=== PATIENT | female | born 1980 | race Caucasian/White ===

== ENCOUNTER 2019-11-19 01:38 | Emergency (ER) | payer MEDICAID ==
[~2019-11-19] VITALS: Ht 162.6 cm; Wt 59.0 kg
[2019-11-19 01:43] VITALS: BP 89/64
--- NOTE | 2019-11-19 01:46 | NUR ---
PT W/C ASSISTED TO BED #12
--- NOTE | 2019-11-19 01:57 | NUR ---
39 Y/O FEMALE PRESENTED TO ED C/O LOWER ABD PAIN X 1 DAY . PT [place] AND WAS HAVING MILD PAIN BUT NO LOSS OF APPETITE. PT STATES X 1 HR AGO THE PAIN BECAME SEVERE. NORMOACTIVE BOWEL SOUNDS ALL QUADS. ABD FLAT, SOFT AND TENDER UPON PALPATION. A/O X 4 , RR EVEN AND UNLABORED , SKIN PINK WARM AND INTACT. PT PLACED IN GOWN . PT RESTING IN BED , LOCKED AND IN LOWEST POSITION, HOB ELEVATED, SIDE RAIL X1. PMH: 2 X , OVARIAN CYST NKA
--- NOTE | 2019-11-19 01:58 | NUR ---
ERMD BEDSIDE EVALUATING PT
[2019-11-19] MEDS ORDERED: KETOROLAC 30 MG/ML VIAL IVP ONE (02:00)
[2019-11-19] MEDS ORDERED: NACL 0.9% 1,000 ML IV ONE (02:00)
[2019-11-19] MEDS ORDERED: ONDANSETRON 4 MG/2 ML VIAL IVP ONE (02:00)
[2019-11-19 02:12] LABS: BASOPHILS % (AUTO) 0.4 % (0.0-2.0); EOSINOPHILS # (AUTO) 0.1 K/uL (0-0.4); EOSINOPHILS % (AUTO) 1.4 % (0.0-4.0); HEMATOCRIT 39.8 % (36-48); HEMOGLOBIN 13.2 g/dL (12.0-16.0); LYMPHOCYTES # (AUTO) 1.7 K/uL (2.5-16.5); MEAN CORPUSCULAR HEMOGLOBIN 30 pg (27-31); MEAN CORPUSCULAR HGB CONC 33 g/dL (33-37); MEAN CORPUSCULAR VOLUME 89.2 fL (80-94); MONOCYTES # (AUTO) 0.4 K/uL (0.8-1.0); MONOCYTES % (AUTO) 4.9 % (1.7-9.3); NEUTROPHILS # (AUTO) 5.3 K/uL (1.8-7.7); NEUTROPHILS % (AUTO) 70.3 % (42.2-75.2); PLATELET COUNT (AUTO) 219 K/uL (140-450); RED BLOOD CELL COUNT(AUTO) 4.47 MIL/uL (4.20-5.40); RED CELL DISTRIBUTION WIDTH 14.2 % (11.6-13.7); WHITE BLOOD COUNT (AUTO) 7.5 K/uL (4.8-10.8)
[2019-11-19 02:33] LABS: ALBUMIN 4.3 g/dL (3.4-5.0); ANION GAP 13.5 (8-16); CREATININE 0.8 mg/dL (0.6-1.3); POTASSIUM 3.5 mmol/L (3.5-5.1); TOTAL BILIRUBIN 0.2 mg/dL (0.0-1.0)
--- NOTE | 2019-11-19 02:42 | NUR ---
ASSISTED PT TO THE RESTROOM VIA WHEELCHAIR.
--- NOTE | 2019-11-19 03:04 | NUR ---
PT TAKEN TO CT VIA WHEELCHAIR.
--- NOTE | 2019-11-19 03:11 | NUR ---
PT BACK FROM CT VIA WHEELCHAIR.
--- NOTE | 2019-11-19 04:46 | NUR ---
ASSISTED PT TO THE RESTROOM, STEADY GAIT.
--- NOTE | 2019-11-19 05:27 | NUR ---
PT ASLEEP, RESTING IN BED, RR EVEN AND UNLABORED, NO C/O PAIN AT THIS TIME. BED LOCKED AND IN LOWEST POSITION, SIDE RAIL UP X1. WILL CONTINUE TO MONITOR.
[2019-11-19 06:08] VITALS: BP 89/64
--- NOTE | 2019-11-19 06:09 | NUR ---
Patient discharged with v/s stable. Written and verbal after care instructions given and explained. Patient verbalized understanding. Ambulatory with steady gait. All questions addressed prior to discharge. Advised to follow up with PMD.
[2019-11-19] MEDS ORDERED: MORPHINE SULFATE 4 MG/ML SYR ONE (21:10)
[2019-11-19] MEDS ORDERED: MORPHINE SULFATE 2 MG/ML SYR ONE (21:14)
[2019-11-20] MEDS ORDERED: ACETAMINOPHEN 325 MG TAB ONE (03:19)
== END 2019-11-19 06:09 | disposition home or self-care (01) ==
LOC: MED 01:38
DX: N83.8 Other noninflammatory disorders of ovary, fallopian tube and broad ligament (principal); R11.2 Nausea with vomiting, unspecified; Z98.890 Other specified postprocedural states
CPT/HCPCS: 36415; 74176; 76856; 80053; 81002; 81025; 85025; 93976; 96361; 96374; 96375; 99285; J1885; J2270; J2405; J7030; Q0092; J1644

== ENCOUNTER 2019-11-19 12:59 | Inpatient (IN) | payer MEDICAID ==
[~2019-11-19] VITALS: Ht 162.6 cm; Wt 60.8 kg
[2019-11-19 13:02] VITALS: BP_SYST 85; BP_SYST 94; BP_DIAS 54; BP_DIAS 61
--- NOTE | 2019-11-19 13:14 | NUR ---
39/F c/o abd pain x2 hours. pt was just seen at [facility] last night and told to f/u w dr. arnold today. her appt was at 1pm but she was in too much pain so she wanted to seek emergency treatment instead. pt states she was told she has "2 masses" on her ovaries. 11/24 shooting pain L & R pelvis radiating to low back N/v last night but not today hx: ovarian mass L and R rx: none
--- NOTE | 2019-11-19 13:23 | NUR ---
PT RESTING IN BED, SIDE RAIL X1
[2019-11-19] MEDS ORDERED: MORPHINE SULFATE 4 MG/ML SYR IVP ONE (14:00)
[2019-11-19] MEDS ORDERED: ONDANSETRON 4 MG/2 ML VIAL IVP ONE (14:00)
--- NOTE | 2019-11-19 14:30 | NUR ---
US AT BEDSIDE
[2019-11-19] MEDS ORDERED: NACL 0.9% 1,000 ML IV ONE (16:15)
[2019-11-19] MEDS ORDERED: POTASSIUM CHLORIDE 10 MEQ TABER PO PRN (16:25)
[2019-11-19] MEDS ORDERED: DOCUSATE SODIUM 100 MG GELCAP PO PRN (16:25)
[2019-11-19] MEDS ORDERED: MAG SULF 2000 MG/WATER PREMIX 50 ML IV PRN (16:25)
[2019-11-19] MEDS ORDERED: LORazepam 2 MG/ML VIAL IM/IVP PRN (16:25)
[2019-11-19] MEDS ORDERED: ONDANSETRON 4 MG/2 ML VIAL IM/IVP PRN (16:25)
[2019-11-19] MEDS ORDERED: HYDROcodone/APAP 5/325 MG 1 TAB TAB PO PRN (16:25)
[2019-11-19] MEDS ORDERED: ACETAMINOPHEN 325 MG TAB PO PRN (16:25)
[2019-11-19] MEDS ORDERED: ZOLPIDEM 5 MG TAB PO PRN (16:25)
--- NOTE | 2019-11-19 16:39 | NUR ---
PT RESTING IN BED, SIDE RAIL X1
[2019-11-19 17:17] LABS: APPEARANCE,URINE SL CLOUDY (CLEAR); BILIRUBIN,URINE NEGATIVE (NEGATIVE); BLOOD, URINE NEGATIVE (NEGATIVE); COLOR,URINE YELLOW (YELLOW); LEUKOCYTE ESTERASE ,URINE NEGATIVE (NEGATIVE); NITRITE, URINE NEGATIVE (NEGATIVE); UGLUCOSE NEGATIVE (NEGATIVE)
--- NOTE | 2019-11-19 17:19 | NUR ---
URINE OBTAINED GIVEN TO LAB
[2019-11-19 17:23] LABS: CHOL/HDL RATIO 4.7 (1-4.5); THYROID STIMULATING HORMONE 4.93 uIU/mL (0.34-3.74)
[2019-11-19 17:31] LABS: BARBITURATE, URINE NEGATIVE ng/ml (NEG <=200); BENZODIAZEPINE, URINE NEGATIVE ng/mL (NEG <=200); CANNABINOID, URINE NEGATIVE ng/mL (NEG <=50); COCAINE, URINE NEGATIVE ng/mL (NEG <=300); OPIATE, URINE NEGATIVE ng/mL (NEG <=2000); PHENCYCLIDINE SCREEN,URINE NEGATIVE ng/mL (NEG <=25)
[2019-11-19 17:52] LABS: PROTHROMBIN TIME 10.3 secs (10.8-13.4)
--- NOTE | 2019-11-19 19:10 | NUR ---
NEGIN FRYE GIVEN REPORT FOR CONTINUITY OF CARE
--- NOTE | 2019-11-19 20:20 | NUR ---
PT RESTING IN BED, REQUESTING PAIN MEDS \ Addendum: 11/19/19 at 2207 by MEDWQ VSS, R/R EQUAL AND UNLABORED. SIDE RAIL X 2 BED IN LOW POSITION, WILL CONTINUE TO MONITOR.
--- NOTE | 2019-11-19 21:00 | NUR ---
PT RECEIVED MORPHINE 0.5MG IVP, PT TOLERATED WELL. WILL CONTINUE TO MONITOR.
[2019-11-19] MEDS: MORPHINE SULFATE 2 MG/ML SYR IVP PRN (21:24)
--- NOTE | 2019-11-19 21:25 | NUR ---
PT RESTING IN BED QUIETLY. R/R EQUAL, AND UNLABORED. VSS. SIDE RAIL X1, BED IN LOW POSITION, WILL CONTINUE TO MONITOR
--- NOTE | 2019-11-19 22:13 | NUR ---
PT RESTING IN BED QUIETLY. R/R EQUAL, AND UNLABORED. VSS. SIDE RAIL X1, BED IN LOW POSITION, WILL CONTINUE TO MONITOR
--- NOTE | 2019-11-19 23:26 | NUR ---
PT APPEARS TO BE SLEEPING IN BED. R/R EQUAL, AND UNLABORED. VSS. SIDE RAIL X1, BED IN LOW POSITION, WILL CONTINUE TO MONITOR
--- NOTE | 2019-11-20 00:30 | NUR ---
PT SLEEPING IN BED QUIETLY, R/R EQUAL, AND UNLABORED. VSS, SIDE RAIL X1, BED IN LOW POSITION, WILL CONTINUE TO MONITOR.
[2019-11-20 01:40] VITALS: BP 122/77
--- NOTE | 2019-11-20 01:40 | NUR ---
RECEIVED PT AAOX4 , FROM ER , NID , IV SITE INTACT AND PATENT , NO SPOTTING NO BLEEDING . WALKS TO BED SAFETY MEASURES IN PLACE . NPO REMIND THE PT . POC DISCUSSED AND VERBALIZED UNDERSTANDING , ADM . ASSESSMENT DONE . WILL CONT. TO MONITOR . CALL LIGHT WITHIN REACH .
--- NOTE | 2019-11-20 01:41 | NUR ---
Patient will be admitted to care of DR. CUNNINGHAM. Admited to MS. Will go to room 111 A. Belongings list completed. Report to MELVA SABILLON.
[2019-11-20 04:00] VITALS: BP 89/50
[2019-11-20] MEDS ORDERED: NACL 0.9% 500 ML IV ONE (04:05)
[2019-11-20] MEDS ORDERED: NACL 0.9% 1,000 ML IV SCH (04:05)
--- NOTE | 2019-11-20 05:00 | NUR ---
DO ROUNDS , RE CHECK PT'S BP 89 /50 - WILL REFER TO DOCTOR SPENT GRAIN DRYER .
--- NOTE | 2019-11-20 05:04 | NUR ---
DR. MORTON - CALL BACK - MADE T.O : 1.5 NSS BOLUS - WILL CARRY OUT .
--- NOTE | 2019-11-20 06:00 | NUR ---
BP RE CHECK - 90/60 - NO COMPLAIN MADE . WILL CONT. TO MONITOR .
[2019-11-20 07:03] LABS: BASOPHILS % (AUTO) 0.3 % (0.0-2.0); EOSINOPHILS % (AUTO) 0.5 % (0.0-4.0); HEMATOCRIT 32.3 % (36-48); HEMOGLOBIN 10.7 g/dL (12.0-16.0); LYMPHOCYTES # (AUTO) 1.2 K/uL (2.5-16.5); MEAN CORPUSCULAR HEMOGLOBIN 30 pg (27-31); MEAN CORPUSCULAR HGB CONC 33 g/dL (33-37); MEAN CORPUSCULAR VOLUME 89.8 fL (80-94); MONOCYTES # (AUTO) 0.3 K/uL (0.8-1.0); MONOCYTES % (AUTO) 4.1 % (1.7-9.3); NEUTROPHILS # (AUTO) 5.8 K/uL (1.8-7.7); NEUTROPHILS % (AUTO) 79.1 % (42.2-75.2); PLATELET COUNT (AUTO) 165 K/uL (140-450); RED CELL DISTRIBUTION WIDTH 14.4 % (11.6-13.7); WHITE BLOOD COUNT (AUTO) 7.4 K/uL (4.8-10.8)
--- NOTE | 2019-11-20 07:34 | NUR ---
ENDORSED TO TO AM SHIFT - PT -,STABLE .
--- NOTE | 2019-11-20 07:34 | NUR ---
RECEIVED PT FROM NIGHT RN. PT A/OX4. ASLEEP IN BED. PT ON RA. DIET: NPO EXCEPT MEDS. 22G IV IN L HAND. SKIN INTACT. 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 NO ACUTE DISTRESS NOTED. SAFETY PRECAUTIONS IN PLACE. BED IN LOW POSITION. CALL LIGHT IN REACH. WILL CONTINUE TO MONITOR.
[2019-11-20 07:36] LABS: ANION GAP 13.8 (8-16); CARBON DIOXIDE 22.2 mmol/L (21-32); CREATININE 0.8 mg/dL (0.6-1.3)
[2019-11-20 07:46] LABS: MAGNESIUM 1.8 mg/dL (1.8-2.4); PHOSPHORUS 2.8 mg/dL (2.5-4.9)
[2019-11-20 08:07] LABS: T4 (THYROXINE) 7.7 ug/dL (4.5-12.0)
--- NOTE | 2019-11-20 08:47 | NUR ---
ADMINISTERED MORNING MEDS. PT TOLERATED. ASSISTED PT TO BATHROOM. WILL CONTINUE TO MONITOR.
--- NOTE | 2019-11-20 09:04 | NUR ---
PATIENT HAS BEEN SCREENED AND CATEGORIZED LOW NUTRITION RISK. PATIENT WILL BE SEEN WITHIN 7 DAYS OF ADMISSION. 11/26/[address]
--- NOTE | 2019-11-20 09:19 | NUR ---
DR CUNNINGHAM MADE ROUNDS
[2019-11-20 09:37] VITALS: BP 121/76
--- NOTE | 2019-11-20 10:57 | NUR ---
PT SITTING IN BED TALKING TO FAMILY ON PHONE. NO ACUTE DISTRESS NOTED. WILL CONTINUE TO MONITOR.
--- NOTE | 2019-11-20 11:14 | NUR ---
DC PLANN[age] YRS OLD FEMALE PATIENT WAS ADMITTED FROM HOME WITH A DX OF INTRACTABLE ABD PAIN AND BILATERAL OVARIAN CYST. PATIENT HAS A HX OF IRREGULAR SPOTTING AND IRON DEFICIENCY, CONSULTED WITH DR LEWIS PERFORMED DIAGNOSTIC LAPAROSCOPY CA 125 AND CA 19-9. ADMINISTERED IVF ,ADVANCED DIET TO REGULAR. DC PLAN TO GO HOME WHEN STABLE. CM TO FOLLOW. Addendum: 11/21/19 at 1330 by Joanna Tellez CM DC PLANNING PT STABLE FOR DISCHARGE AND F/U WITH DR LEWIS WITHIN ONE WEEK.
--- NOTE | 2019-11-20 11:32 | NUR ---
PT BP IN LOWER EXTREMITIES: 109/59, UPPER EXTREMITIES 93/60. BP RECHECKED IN EACH EXTREMITY TWICE. DR CUNNINGHAM NOTIFIED. NO ACUTE DISTRESS NOTED. WILL CONTINUE TO MONITOR
--- NOTE | 2019-11-20 12:02 | NUR ---
RECEIVED ORDER FOR IV NS @100ML/HR PER DR CUNNINGHAM. WILL CARRY OUT ORDER.
[2019-11-20 12:03] VITALS: BP 93/62
[2019-11-20] MEDS: NACL 0.9% 1,000 ML IV SCH ×2 (12:06→21:35)
--- NOTE | 2019-11-20 12:27 | NUR ---
OBTAINED CONSENT FOR DIAGNOSTIC LAPAROTOMY.
[2019-11-20] MEDS ORDERED: MEPERIDINE 25 MG/ML SYR IVP SCH (14:00)
--- NOTE | 2019-11-20 14:17 | NUR ---
PT SITTING IN BED. STATES "SHE FEELS A BIT BETTER". NO ACUTE DISTRESS NOTED. WILL CONTINUE TO MONITOR.
--- NOTE | 2019-11-20 14:30 | NUR ---
PATIENT OFF UNIT TO OR FOR LAPAROTOMY Addendum: 11/20/19 at 1756 by Princess Kerry Grace RN CORRECTION: LAPAROSCOPIC
[2019-11-20] MEDS ORDERED: MIDAZOLAM 2 MG/2 ML VIAL ONE (15:00)
[2019-11-20] MEDS ORDERED: ROCURONIUM 50 MG/5 ML VIAL IV ONE (15:00)
[2019-11-20] MEDS ORDERED: PROPOFOL 200 MG/20 ML VIAL IV ONE (15:00)
[2019-11-20] MEDS ORDERED: KETOROLAC 30 MG/ML VIAL ONE (15:00)
[2019-11-20] MEDS ORDERED: ONDANSETRON 4 MG/2 ML VIAL ONE (15:00)
[2019-11-20] MEDS ORDERED: fentaNYL citrate 0.05 MG/ML VIAL ONE (15:00)
[2019-11-20] MEDS ORDERED: SEVOFLURANE 250 ML BTL INH ONE (15:00)
[2019-11-20] MEDS ORDERED: BUPIVACAINE-MPF/EPI 0.25% 30 ML VIAL INJ ONE (15:23)
--- NOTE | 2019-11-20 18:07 | NUR ---
PT BACK ON UNIT. PT VITAL: BP: 94/61 HR:85 TEMP: 97.7 RR: 13 SAO2: 100% ROOM AIR. PAIN 6/10. PT STATES PAIN IS TOLERABLE AT THIS TIME. WILL CONTINUE TO MONITOR.
--- NOTE | 2019-11-20 18:10 | NUR ---
GIVEN UPDATE TO IMTIAZ, PATIENT'S .
--- NOTE | 2019-11-20 18:15 | NUR ---
PT BP 91/57 HR 76 TEMP 97.8 RR 14 SAO2 100% RA 7/10 PAIN. WILL CONTINUE TO MONITOR.
--- NOTE | 2019-11-20 18:30 | NUR ---
PT BP 92/59 HR 85 TEMP 97.7 RR 18 SAO2 100% RA. PAIN 10/24. PT GIVEN 1 MG MORPHINE IVP OVER 2 MINS FOR PAIN. WILL CONTINUE TO MONITOR. Addendum: 11/20/19 at 1844 by Adalberto Roman RN WASTE REMAINING 1MG OF MORPHINE.
--- NOTE | 2019-11-20 18:31 | NUR ---
RECEIVED ORDER FROM DR. CUNNINGHAM FOR CLEAR LIQUID DIET AND ADVANCE TOLERATED. IF PATIENT WANTS REGULAR DIET, IT'S ALSO OKAY LONG PATIENT TOLERATES IT.
[2019-11-20] MEDS: MORPHINE SULFATE 2 MG/ML SYR IVP PRN (18:34)
--- NOTE | 2019-11-20 18:49 | NUR ---
PT BP 91/60 HR 78 TEMP 97.9 RR 16 SAO2: 97% RA. 4/10 PAIN. PT STATES THAT "PAIN IS MUCH LOWER" WILL CONTINUE TO MONITOR.
--- NOTE | 2019-11-20 19:14 | NUR ---
ENDORSED PT TO NIGHT NURSE, KETTY, FOR CONTINUITY OF CARE. PT IN STABLE CONDITION. NO ACUTE DISTRESS NOTED.
--- NOTE | 2019-11-20 19:15 | NUR ---
RECEIVED PT IN STABLE CONDITION FROM AM NURSE. AWAKE, ALERT AND ORIENTED X4. MED SURG PT. WITH NO C/O ANY POST OP PAIN AT THIS TIME. HAS 3 X LARGE BAND AIDS ON THE ABDOMEN. NO REDNESS NOR BLEEDING NOTED. IVF INFUSING WELL ON THE LT HAND G#22. CLEAR AND PATENT. PLAN OF CARE DISCUSSED AND VERBALIZED UNDERSTANDING. BED ON LOW POSITION, FREQ ROUNDS NEEDED. SIDE RAILS UP X2. CALL LIGHT WITHIN EASY REACH. WILL CONTINUE TO MONITOR.
[2019-11-20 19:58] VITALS: BP 93/61
--- NOTE | 2019-11-20 20:30 | NUR ---
PT AWAKE. NO C/O ANY PAIN. INSTRUCTED TO CALL IF NEED TO VOID FOR ASSISTANCE. CALL LIGHT PLACED WITHIN EASY REACH.
--- NOTE | 2019-11-20 21:15 | NUR ---
MADE ROUNDS. PT REQUESTED ANOTHER HOT TEA. PROVIDED. ASKED IF HAVING PAIN. SHE DENIED AT THIS TIME. WILL CONTINUE TO MONITOR.
--- NOTE | 2019-11-20 22:00 | NUR ---
PT ALREADY VOIDED @ 300 ML CLEAR YELLOW URINE.
[2019-11-21 00:25] VITALS: BP 91/58
--- NOTE | 2019-11-21 01:00 | NUR ---
RECEIVED REPORT FROM KETTY FRYE.PT IS IN STABLE CONDITION.HER BP IS IN LOW.WILL RECHECK LATER.CALL LIGHT IN REACH. IVF IS IN PROGRESS.HAS 3 BAND AIDS ON HER ABDOMEN.WILL CONTINUE MONITORING.
--- NOTE | 2019-11-21 01:00 | NUR ---
ENDORSED PLAN OF CARE TO MELVA MALDONADO FOR CONTINUITY OF CARE. PT IN STABLE CONDITION.
--- NOTE | 2019-11-21 04:15 | NUR ---
RECHECK BP IS 88/45.INCREASED IVF TO 150ML/H.WILL RECHECK.
[2019-11-21] MEDS ORDERED: NACL 0.9% 1,000 ML IV SCH (04:30)
--- NOTE | 2019-11-21 04:43 | NUR ---
RECHECKED BP=88/53.CALLED MD AND TOOK ORDER FOR 1LIT NS BOLUS.IT STARTED.
[2019-11-21 06:56] LABS: BASOPHILS % (AUTO) 0.4 % (0.0-2.0); EOSINOPHILS # (AUTO) 0.1 K/uL (0-0.4); EOSINOPHILS % (AUTO) 1.6 % (0.0-4.0); HEMATOCRIT 29.6 % (36-48); HEMOGLOBIN 9.9 g/dL (12.0-16.0); LYMPHOCYTES # (AUTO) 1.2 K/uL (2.5-16.5); LYMPHOCYTES % (AUTO) 26.1 % (20.5-51.1); MEAN CORPUSCULAR HEMOGLOBIN 30 pg (27-31); MEAN CORPUSCULAR HGB CONC 33 g/dL (33-37); MEAN CORPUSCULAR VOLUME 90.1 fL (80-94); MONOCYTES # (AUTO) 0.2 K/uL (0.8-1.0); MONOCYTES % (AUTO) 5.2 % (1.7-9.3); NEUTROPHILS # (AUTO) 3.2 K/uL (1.8-7.7); NEUTROPHILS % (AUTO) 66.7 % (42.2-75.2); PLATELET COUNT (AUTO) 156 K/uL (140-450); RED BLOOD CELL COUNT(AUTO) 3.29 MIL/uL (4.20-5.40); RED CELL DISTRIBUTION WIDTH 13.9 % (11.6-13.7); WHITE BLOOD COUNT (AUTO) 4.8 K/uL (4.8-10.8)
--- NOTE | 2019-11-21 07:25 | NUR ---
RECEIVED PATIENT FROM NIGHT NURSE. PATIENT IS AWAKE, ALERT, ORIENTED X4. PATIENT IS SITTING UP IN BED COMFORTABLY. DENIES OF PAIN AT THIS TIME. RESP EVEN AND UNLABORED ON ROOM AIR. LH 22 NOTED AND PATENT. PLAN OF CARE DISCUSSED WITH PATIENT. PATIENT VERBALIZED UNDERSTANDING. SAFETY MEASURES IN PLACE. CALL LIGHT WITHIN REACH. WILL CONTINUE TO MONITOR.
[2019-11-21 07:36] LABS: CARBON DIOXIDE 19.5 mmol/L (21-32); CREATININE 0.7 mg/dL (0.6-1.3); POTASSIUM 3.5 mmol/L (3.5-5.1)
[2019-11-21 07:44] LABS: MAGNESIUM 1.7 mg/dL (1.8-2.4); PHOSPHORUS 2.3 mg/dL (2.5-4.9)
[2019-11-21] MEDS: NACL 0.9% 1,000 ML IV SCH (07:55)
[2019-11-21 08:00] VITALS: BP 91/56
--- NOTE | 2019-11-21 08:01 | NUR ---
RECHECKED BP AFTER 1 L/NS BOLUS =92/58.ENDORSED TO AM RN INSTABLE CONDITION.SHE GOT OOB AND WENT TO BATHROOM. NO DISTRESS NOTED NOW.
[2019-11-21 08:14] LABS: ESTRADIOL SERUM 73.8 pg/mL (.)
--- NOTE | 2019-11-21 10:18 | NUR ---
ASSISTED PATIENT OUT OF BED AND TO THE BATHROOM. LINEN CHANGED. PATIENT AMBULATING WITH SLOW STEADY GAIT. DENIES OF PAIN AT THIS TIME. NO NOTED DISTRESS. CALL LIGHT WITHIN REACH. WILL CONTINUE TO MONITOR.
--- NOTE | 2019-11-21 12:50 | NUR ---
PATIENT ATE LUNCH, TOLERATED WELL. PATIENT IS SITTING UP IN BED COMFORTABLY. DENIES OF ANY PAIN AT THIS TIME. RESP EVEN AND UNLABORED ON ROOM AIR. PATIENT AMBULATED WITH STEADY GAIT TO THE BATHROOM. SAFETY MEASURES IN PLACE. CALL LIGHT WITHIN REACH. WILL CONTINUE TO MONITOR.
[2019-11-21] MEDS ORDERED: FERR325E14 PO (13:02)
[2019-11-21] MEDS ORDERED: DOCU-299 PO (13:02)
[2019-11-21] MEDS ORDERED: HYDR-5122 PO ×2 (13:02→13:46)
--- NOTE | 2019-11-21 15:15 | NUR ---
RECEIVED DISCHARGE ORDER FOR PATIENT. PATIENT MADE AWARE. PATIENT STATED HER WILL PICK HER UP BUT NOT UNTIL 1900. WILL CONTINUE TO MONITOR.
--- NOTE | 2019-11-21 17:25 | NUR ---
PATIENT STATED HER WILL COME AND PICK HER UP AT 1800 AND WILL BRING HER CLOTHES. ENDORSED TO MELVA BRISENO FOR HER DISCHARGE. PATIENT IN STABLE CONDITION.
--- NOTE | 2019-11-21 18:20 | NUR ---
DISCHARGE INSTRUCTIONS PROVIDED TO PATIENT IN PREFERRED LANGUAGE OF SWEDISH. INSTRUCTIONS ON FOLLOW-UP WITH DR. LEWIS AND PCP, NEW MEDICATION REGIMEN AND SIDE EFFECTS, AND CARE OF S/P LAPRASCOPIC SURGERY. WOUND CARE MANAGEMENT INSTRUCTED TO PATIENT. ANSWERED ALL OF PATIENT'S QUESTION REGARDING DISCHARGE. PATIENT ALL DRESSED UP AND READY TO GO. A CURBSIDE LOBBY. IV SITE REMOVED WITH MINIMAL BLOOD AND LUMEN COMPLETELY INTACT. ID BANDS REMOVED. WHEELED PATIENT DOWN TO THE LOBBY VIA WHEELCHAIR. PATIENT DISCHARGED AT THIS TIME TO HOME IN STABLE CONDITION.
== END 2019-11-21 18:00 | disposition home or self-care (01) | DRG 513 ==
LOC: MED 12:59 → MMU 16:17 → MTU 11-20 01:24
PROC: 0UB24ZZ Excision of Bilateral Ovaries, Percutaneous Endoscopic Approach (ICD-10-PCS; principal; 2019-11-20 14:30)
DX: N80.1 Endometriosis of ovary (principal); K66.1 Hemoperitoneum; K66.0 Peritoneal adhesions (postprocedural) (postinfection); N83.201 Unspecified ovarian cyst, right side; N83.202 Unspecified ovarian cyst, left side; D62 Acute posthemorrhagic anemia; R58 Hemorrhage, not elsewhere classified
CPT/HCPCS: 36415; 71045; 76856; 80048; 80305; 81003; 81025; 82150; 82670; 83036; 83690; 83735; 83880; 84100; 84436; 84443; 84484; 85025; 85610; 85730; 86304; 87081; 96361; 96374; 96375; 99285; J0690; J1644; J1885; J2250; J2270; J2405; J2704; J3010; J3490; J7030; J7060; Q0092